=== PATIENT | male | born 1945 | race Caucasian/White ===

== ENCOUNTER 2016-12-20 14:57 | Emergency (ER) | payer MEDICARE ==
[2016-12-20] MEDS ORDERED: BUPIVACAINE HCL/PF 5 MG/ML 10ML VIAL IV ONE (15:13)
[2016-12-20 15:27] VITALS: BP 114/74
[2016-12-20] MEDS ORDERED: BUPIVACAINE HCL/PF 5 MG/ML 10ML VIAL IJ ONE (15:31)
[2016-12-20] MEDS ORDERED: DIPH,PERTUSS(ACELL),TET VAC/PF 0.5 ML DISP.SYRIN IM ONE (15:33)
--- NOTE | 2016-12-20 15:34 | ED Physician Documentation ---
Hand Injury - HISTORIAN Historian: patient - HPI Stated Complaint: laceration Chief Complaint: Hand Injury Additional Information: cut left 4th digit with pruning shears4 hrs ago Onset: just prior to arrival Where: home Severity: mild Duration: persistent since Context: laceration Location of Injury: L fingers Modifying Factors: pain on movement Further Comments: no - ROS CONST: no problems GI/: denies: problems urinating, nausea, vomiting NEURO: none CVS/RESP: none EYES/ENT: none MS/SKIN/LYMPH: none - PAST HX Past History: none Immunizations: denies: tetanus Allergies/Adverse Reactions: Allergies Allergy/AdvReac Type Severity Reaction Status Date / Time No Known Allergies Allergy Verified 12/20/16 15:18 - SOCIAL HX Smoking History: non-smoker Alcohol Use: none Drug Use: none - FAMILY HX Family History: none - VITAL SIGNS Vital Signs: Vital Signs Temp Pulse Resp BP Pulse Ox 98.1 F 72 18 114/74 97 12/20/16 15:23 12/20/16 15:23 12/20/16 15:23 12/20/16 15:23 12/20/16 15:23 - REVIEWED ASSESSMENTS Nursing Assessment Reviewed: Yes Vitals Reviewed: Yes Procedures Wound Location: upper extremity (left 4th digit) Wound's Depth, Shape: superficial Wound Explored: clean Betadine Prep?: Yes Anesthesia: Other (marcaine .5%) Wound Debrided: minimal Wound Repaired With: sutures Suture Size/Type: 4:0, nylon Number of Sutures: 3 Sterile Dressing Applied?: Yes Splint Applied?: No Sling Applied?: No ED Results Lab/Radiology - Orders Orders: ED Orders Category Date Time Status Bupivacaine HCl/Pf [Marcaine 0.5%] Med 12/20/16 15:31 Once 10 mg IJ NOW ONE Bupivacaine HCl/Pf [Marcaine 0.5%] Med 12/20/16 15:13 Discontinued 50 mg IV .STK-MED ONE Hand Injury Physical Exam - Exam General Appearance: no acute distress Hand: other (1.5 cm filet type laceration ventral 4th digit, proximal) Wrist: normal inspection Neuro: sensation nml, motor nml. No: digital nerve deficit, decreased fine touch Vascular: no vascular compromise Tendons: tendon function nml Forearm/Elbow/Arm: uninjured above wrist Skin: warm/dry, normal color Head/ENT: nml inspection Neck/Back: nml inspection Resp/CVS: chest non-tender, no resp. distress Abdomen: non-tender Discharge Clincal Impression: Laceration of finger of left hand Qualifiers: Encounter type: initial encounter Qualified Code(s): S61.219A - Laceration without foreign body of unspecified finger without damage to nail, initial encounter Condition: Good Disposition: 01 HOME, SELF-CARE Decision to Admit: NO Date of Decison to Admit: 12/20/16 Decision Time: 16:01
== END 2016-12-20 16:09 | disposition home or self-care (01) ==
LOC: ED 14:57
DX: S61.219A Laceration without foreign body of unspecified finger without damage to nail, initial encounter (principal); W27.8XXA Contact with other nonpowered hand tool, initial encounter; Y93.9 Activity, unspecified; Y99.9 Unspecified external cause status
CPT/HCPCS: 12001; 90715; 99283; J3490

== ENCOUNTER 2018-11-14 09:44 | Day surgery (SDC) | payer MEDICARE ==
[~2018-11-14 09:44] MED LIST: LACTATED RINGERS 1,000 ML IV.SOLN IV ONE; LIDOCAINE HCL 2% PF 100MG/5ML VIAL IJ ONE; PROPOFOL 200 MG/20 ML VIAL IV ONE
--- NOTE | 2018-11-17 10:25 | GI Report ---
REFERRING PHYSICIAN: Dr. España. PROCEDURE PERFORMED: Colonoscopy. SURGEON: Kannan Riggs M.D., F.A.C.P. INDICATION FOR PROCEDURE: The patient is a 73-year-old man who had colon resection of the sigmoid in 2005 for obstruction. He had tumor and received chemotherapy. He has had a number of hernia surgeries since that time. He was a cigarette smoker for many years, did stop back in 1979. He is for surveillance colonoscopy, the last one was 5 years ago, he thinks. PROCEDURE MEDICATION: Propofol, as per Anesthesia. DESCRIPTION OF PROCEDURE: The Olympus video colonoscope was advanced into the rectum. The prep was poor, there was dark liquid. There is an anastomosis at 15 cm, kind of an end-to-side resection. The colonoscope was slowly advanced all the way to the cecum though it did take lavage with saline to clear the stool in several areas. The appendiceal orifice, ileocecal valve looked normal. On slow withdrawal, the cecum, ascending colon, no obvious intraluminal lesions noted. The transverse colon appeared normal. The descending colon no obvious intraluminal lesions noted. There has been a sigmoid resection with descending anastomosis end-to-side at 15 cm in the sigmoid. I saw no polyps or lesions noted, though small polyps could be missed because of the poor prep. FINDINGS: 1. Post sigmoid resection for cancer. 2. Poor prep. 3. Atonic, redundant colon. RECOMMENDATIONS: 1. Relook at his colon within 3-5 years. Next time he should be on a 2 day prep. 2. Continue to have high fiber in the diet. KANNAN RIGGS M.D., F.A.C.P. Brenda Job#: [id number] Cc: Dr. España] MONS[place]AT
== END 2018-11-14 12:40 | disposition home or self-care (01) ==
LOC: OPSURG 09:44
PROVIDERS: ATTEND Internal Medicine Gastroenterology
DX: Z12.11 Encounter for screening for malignant neoplasm of colon (principal); K59.8 Other specified functional intestinal disorders; Z90.49 Acquired absence of other specified parts of digestive tract; Z85.038 Personal history of other malignant neoplasm of large intestine
CPT/HCPCS: G0105; J2001; J2704; J7120; S1016